=== PATIENT | male | born 1960 | race Caucasian/White ===

== ENCOUNTER 2018-03-26 12:37 | Outpatient (CLI) | payer BC ==
[2018-03-26 15:45] LABS: Bilirubin Negative (Negative); Blood, Urine Negative (Negative); Clarity CLEAR (Clear); Glucose, Urine (Dipstick) Negative (Negative); Leukocyte Negative (Negative); Nitrite Negative (Negative); Protein, Urine (Dipstick) 30 mg/dL (Neg-Trace); Specific Gravity, Urine 1.017 (1.002-1.036); Urobilinogen 0.2 mg/dL (0.2-1.0); pH, Urine 6.5 (5.0-9.0)
[2018-03-26 15:48] LABS: INR-International Normal Ratio 1.1; Prothrombin Time 13.9 SEC (12.0-14.7)
[2018-03-26 15:51] LABS: #Eosinphils 0.1 thou/uL (0.0-0.7); #Lymphocytes 1.4 thou/uL (1.20-3.40); #Monocytes 0.7 thou/uL (0.11-0.59); %Basophils 0.9 % (0.0-1.0); %Eosinophils 1.5 % (0.0-10.0); %Lymphocytes 27.4 % (21.0-51.0); %Monocytes 13.3 % (0.0-10.0); %Neutrophils 56.9 % (42.0-75.0); Hemoglobin 16.3 g/dL (14.0-18.0); Mean Corpuscular HGB CONC 35.2 g/dL (32.0-36.0); Mean Corpuscular Hemoglobin 34.7 pg (27.0-31.0); Mean Corpuscular Volume 98.7 fL (78.0-98.0); Mean Platelet Volume 7.3 fL (7.4-10.4); Platelet Count 190 thou/uL (130-400); RBC Distribution Width 11.4 % (11.5-14.5); Red Blood Cell (RBC) Count 4.69 mill/uL (4.70-6.10); White Blood Cell (WBC) Count 5.2 thou/uL (4.8-10.8)
[2018-03-26 15:53] LABS: Bacteria/HPF None Seen HPF (None Seen); Hyaline Casts/LPF 0-3 HYALINE CAST LPF (0-3 Hyaline); Pathc Cast-AUWi Flag 0.14 (0-2.49); RBC/HPF 0-3 HPF (0-3); Squamous Epithelial None Seen HPF (0-3); WBC/HPF 0-3 HPF (0-3)
== END 2018-03-26 12:38 | disposition home or self-care (01) ==
LOC: LABBT 12:37
PROVIDERS: ATTEND Orthopaedic Surgery
DX: Z01.818 Encounter for other preprocedural examination (principal); M17.12 Unilateral primary osteoarthritis, left knee
CPT/HCPCS: 81001; 85025; 85610; 86850; 86900; 86901; 87081; 93005; 93010

== ENCOUNTER 2018-03-26 15:00 | Inpatient (IN) | payer BC ==
[2018-03-26 13:07] VITALS: BMI 46.1
[2018-03-30] MEDS ORDERED: CEFAZOLIN/Water 2 GM/20 ML SYRINGE ONE (05:57)
[2018-03-30] MEDS ORDERED: Sodium Chloride 0.9% 100 ML ONE (05:57)
[2018-03-30] MEDS ORDERED: Midazolam HCl 2 mg/2 ml Vial ONE (06:19)
[2018-03-30] MEDS ORDERED: Fentanyl 100 MCG/2 ML VIAL ONE (06:19)
[2018-03-30] MEDS ORDERED: Bupivacaine PF 0.5% 30 ML VIAL ONE (06:51)
[2018-03-30] MEDS ORDERED: HYDROcodone/Acetaminophen 10/325 mg Tablet PO PRN (07:14)
[2018-03-30] MEDS ORDERED: Promethazine HCl 25 MG/ML VIAL IM PRN ×3 (07:14→07:55)
[2018-03-30] MEDS ORDERED: Ondansetron HCl/PF 4 MG/2 ML Vial IVP PRN ×3 (07:14→07:55)
[2018-03-30] MEDS ORDERED: Zolpidem Tartrate 5 MG TAB PO PRN ×2 (07:14→07:22)
[2018-03-30] MEDS ORDERED: Ketorolac Tromethamine 30 MG/ML VIAL IVP PRN (07:14)
[2018-03-30] MEDS ORDERED: Ropivacaine HCl/PF 250 ML in Premix Bag 1 BAG NERVE BLCK SCH (07:14)
[2018-03-30] MEDS ORDERED: Fentanyl 100 MCG/2 ML VIAL IV PRN (07:14)
[2018-03-30] MEDS ORDERED: traMADol HCl 50 MG TAB PO PRN ×2 (07:14→07:22)
[2018-03-30] MEDS ORDERED: Acetaminophen 325 MG TAB PO PRN (07:22)
[2018-03-30] MEDS ORDERED: Tranexamic Acid 1,000 MG in Sodium Chloride 0.9% 100 ML IVPB SCH (07:30)
[2018-03-30] MEDS ORDERED: TESTOSTERONE CYPIONATE 100 MG IM SCH (07:30)
[2018-03-30] MEDS ORDERED: Promethazine HCl 25 MG/ML VIAL SLOW IVP PRN (07:55)
[2018-03-30] MEDS ORDERED: Non-Formulary Item 1 EACH (Potassium Chloride [Potassium Chloride] 10 MEQ) PO SCH (09:00)
[2018-03-30] MEDS ORDERED: Fluticasone Propionate Nasal Spray 16 gm Bottle NASAL SCH (09:00)
[2018-03-30] MEDS ORDERED: cloNIDine 0.1 MG TAB PO SCH (09:00)
--- NOTE | 2018-03-30 09:38 | OP ---
DATE OF PROCEDURE: 03/30/2018 PREOPERATIVE DIAGNOSIS: Left knee osteoarthrosis. POSTOPERATIVE DIAGNOSIS: Left knee osteoarthrosis. PROCEDURE PERFORMED: Left total knee replacement using Solar Flow-Through pinless navigation. SURGEON: Apolinar Szymanski M.D. CHILD AND FAMILY THERAPIST: Vidal Jenkins PA-C. BLOOD LOSS: Minimal. COMPLICATIONS: None. ANESTHESIA: He did have general anesthetic. He also had preoperative blocks. IMPLANTS: To the left knee; [employer] total knee system, the femur was size 6 cruciate retai lidya femur. We used a size 6 universal tibial baseplate. We used a 6 x 9 CS X3 tibial bearing and a n asymmetric 29 x 9 X3 patella. DISPOSITION: He did go to the recovery room in stable condition. INDICATIONS: A 57-year-old male who has been having problems with his knee for over 2 years. He has had arthroscopic surgery, multiple injections, therapy, and medicines and at this time he wishes to have his knee replaced. PROCEDURE IN DETAIL: After all appropriate consent forms were explained and signed, the patient was t aken back to the Operating Room and at this time was given general anesthetic. Once the level of anes thesia was appropriate, a well-padded tourniquet was placed on the left leg and the leg was then prep ped and draped in standard surgical fashion. The limb was exsanguinated and tourniquet taken up to 30 0 mmHg. Midline incision was made with a 10 blade down through the skin and subcutaneous tissue. Bovi e electrocautery was used to coagulate any brisk venous bleeding. A new blade was used to make a medi al parapatellar arthrotomy. Small subperiosteal release was performed medially and excess fat pad was removed. The knee was flexed up to gain access to the femur. The femur was navigated and distal femo ral resection was made. Epicondylar access was used to align our sizing jig and this was pinned in pl marion. We sized our femur to be a size 6 cruciate retaining femur. 4:1 cutting block was applied and p inned. Anterior and posterior chamfer cuts were then made. We navigated out our proximal tibia and ma de our proximal tibial resection. Spreaders were used to remove any posterior osteophytes off the susan k of the femur as well as remaining meniscal tissue. A long alignment kathleen was then used to achieve co rrect rotation of our tibial baseplate and a size 6 universal tibial baseplate was chosen. This was p inned in place. We trialed the polyethylene and a 6 x 9 CS X3 tibial bearing polyethylene gave us ful l extension and good stability throughout range of motion. Two towel clips and a saw were used to cut our patella. Three lug nuts were drilled and an asymmetric 29 x 9 X3 patella was trialed which sat n icely in the trochlear groove. We then drilled our femur and punched our tibia. All components were r emoved. The knee was thoroughly irrigated and dried. Cement was mixed into the cement gun on the back table. Components were then placed. The knee was held out in full extension until the cement had dri ed. All excess bone cement was removed. Multiple #2 Vicryl stitches as well as a Quill was used to c lose our extensor mechanism. 0 Quill followed by a running Monoderm was then used to close the skin. Surgicel glue was then used on the skin. Once this had dried, soft tissue dressing was applied to the limb, tourniquet was let down, and the toes pinked up nicely. The patient was then awakened and reji en to the Recovery Room in stable condition. All counts were correct at the end of the case. The juno ent did receive preoperative IV antibiotics. The patient was injected with Exparel for postoperative pain relief.
[2018-03-30] MEDS ORDERED: PROPOFOL 200 MG/20 ML VIAL ONE (12:09)
[2018-03-30] MEDS ORDERED: Lidocaine 1% PF 5 ML VIAL ONE (12:09)
[2018-03-30] MEDS ORDERED: Ketorolac Tromethamine 30 MG/ML VIAL ONE (12:09)
[2018-03-30] MEDS ORDERED: Ondansetron HCl/PF 4 MG/2 ML Vial ONE (12:09)
[2018-03-30] MEDS: Aspirin 81 mg Enteric Coated Tablet PO SCH ×2 (13:29→21:14)
[2018-03-30] MEDS: Sodium Chloride 0.9% 1,000 ML IV SCH ×2 (13:29→21:24)
[2018-03-30] MEDS: cloNIDine 0.1 MG TAB PO SCH ×3 (13:30→21:13)
[2018-03-30] MEDS: Ferrous Gluconate 324 MG TAB PO SCH ×2 (13:30→21:14)
[2018-03-30] MEDS: Gabapentin 300 MG CAP PO SCH (13:30)
[2018-03-30] MEDS: Multivitamin W/ Minerals 1 TAB PO SCH (13:30)
[2018-03-30] MEDS: Fluticasone Propionate Nasal Spray 16 gm Bottle NASAL SCH (13:30)
[2018-03-30] MEDS: Furosemide 20 MG TAB PO SCH (13:30)
[2018-03-30] MEDS: Potassium Chloride 10 MEQ TAB PO SCH (13:31)
[2018-03-30] MEDS: Senokot S 8.6-50 MG TAB PO SCH ×2 (13:31→21:13)
[2018-03-30] MEDS ORDERED: Artificial Tears 18 DROP/0.9 ML EA EYE PRN (13:45)
[2018-03-30] MEDS ORDERED: Famotidine 20 MG TAB PO PRN (13:45)
[2018-03-30] MEDS ORDERED: Chloraseptic Spray 180 ml Bottle PO PRN (13:45)
[2018-03-30] MEDS ORDERED: Milk Of Magnesia 30 ML UDCUP PO PRN (13:45)
[2018-03-30] MEDS ORDERED: Senokot 8.6 MG TAB PO PRN (13:45)
[2018-03-30] MEDS ORDERED: Eucerin (Mineral Oil/Petrolatum,White) 30 gm Jar TOP PRN (13:45)
[2018-03-30] MEDS ORDERED: hydrALAZINE 20 MG/ML VIAL SLOW IVP PRN (13:45)
[2018-03-30] MEDS ORDERED: Mag-Al 1200 mg/1200 mg/30 ML UDCUP PO PRN (13:45)
[2018-03-30] MEDS ORDERED: Diabetic Tussin 200 MG/10 ML UDCUP PO PRN (13:45)
[2018-03-30] MEDS ORDERED: Bisacodyl 10 MG SUPP PR PRN (13:45)
[2018-03-30] MEDS ORDERED: Loperamide HCl 2 MG CAP PO PRN (13:45)
--- NOTE | 2018-03-30 13:46 | PDOC.PN ---
- Subjective Encounter Start Date: 03/30/18 Encounter Start Time: 14:24 -: old records requested/rev consulted for medical management pt had left knee replacement he has nerve block pain is controlled old record reviewed Patient seen and examined. No new complaints. - Objective MAR Reviewed: Yes Vital Signs & Weight: Vital Signs (12 hours) Temp Pulse Resp BP Pulse Ox 03/30/18 13:27 98.0 F 66 18 162/80 H 96 03/30/18 10:40 98.1 F 63 18 161/83 H 96 Weight Weight 350 lb I&O: 03/29/18 03/30/18 03/31/18 06:59 06:59 06:59 Output Total 600 Balance -600 Phys Exam - Physical Examination Constitutional: NAD HEENT: PERRLA, moist MMs, sclera anicteric Neck: no JVD, supple Respiratory: no wheezing, no rales, no rhonchi Cardiovascular: RRR, no significant murmur, no rub Gastrointestinal: soft, non-tender, no distention, positive bowel sounds obesity+ Musculoskeletal: no edema, pulses present left leg with dressing, nerve block + Neurological: non-focal, normal sensation, moves all 4 limbs Lymphatic: no nodes Psychiatric: normal affect, A&O x 3 Skin: no rash, normal turgor Dx/Plan (1) Status post total left knee replacement Code(s): Z96.652 - PRESENCE OF LEFT ARTIFICIAL KNEE JOINT Status: Acute (2) Hypertension Code(s): I10 - ESSENTIAL (PRIMARY) HYPERTENSION Status: Chronic (3) Morbid obesity with BMI of 45.0-49.9, adult Code(s): E66.01 - MORBID (SEVERE) OBESITY DUE TO EXCESS CALORIES; Z68.42 - BODY MASS INDEX (BMI) 45.0-49.9, ADULT Status: Chronic (4) Osteoarthritis Code(s): M19.90 - UNSPECIFIED OSTEOARTHRITIS, UNSPECIFIED SITE Status: Chronic - Plan cont current plan of care * continue aspirin for DVT prophylaxis * continue pepcid for GI prophylaxis * code status - full code * continue PT/OT as per [facility] protocol treatment * pain control with pain meds as below * nerve block as per anesthesia * medication reviewed as below * symptomatic treatment * medically stable with current treatment. Review of Systems - Review of Systems Eyes: negative: Pain, Vision Change, Conjunctivae Inflammation, Eyelid Inflammation, Redness, Other ENT: negative: Ear Pain, Ear Discharge, Nose Pain, Nose Discharge, Nose Congestion, Mouth Pain, Mouth Swelling, Throat Pain, Throat Swelling, Other Respiratory: negative: Cough, Dry, Shortness of Breath, Hemoptysis, SOB with Excertion, Pleuritic Pain, Sputum, Wheezing Cardiovascular: negative: chest pain, palpitations, orthopnea, paroxysmal nocturnal dyspnea, edema, light headedness, other Gastrointestinal: negative: Nausea, Vomiting, Abdominal Pain, Diarrhea, Constipation, Melena, Hematochezia, Other Genitourinary: negative: Dysuria, Frequency, Incontinence, Hematuria, Retention , Other Musculoskeletal: negative: Neck Pain, Shoulder Pain, Arm Pain, Back Pain, Hand Pain, Leg Pain, Foot Pain, Other Skin: negative: Rash, Lesions, Remi, Bruising, Other - Medications/Allergies Allergies/Adverse Reactions: Allergies Allergy/AdvReac Type Severity Reaction Status Date / Time escitalopram [From Lexapro] Allergy blotches Verified 03/26/18 13:08 hydrocodone Allergy blotches Verified 03/26/18 13:08 and itching detergents Allergy itching Uncoded 03/26/18 13:08 and skin peeling Medications: Current Medications Acetaminophen (Tylenol) 650 mg PO Q4H PRN PRN Reason: CANAS/ T > 101F; Mild Pain (1-3) Hydrocodone Bitart/Acetaminophen (Van 10/325) 1 tab PO Q4H PRN PRN Reason: Pain (1-3) Hydrocodone Bitart/Acetaminophen (Van 10/325) 2 tab PO Q4H PRN PRN Reason: PAIN (4-6) Al Hydroxide/Mg Hydroxide (Maalox) 15 ml PO Q4H PRN PRN Reason: Heartburn or Indigestion Amlodipine Besylate (Norvasc) 10 mg PO HS [facility] Artificial Tears (Tears Naturale) 0 drop EA EYE PRN PRN PRN Reason: Dry Eyes Aspirin (Ecotrin) 81 mg PO BID [facility] Last Admin: 03/30/18 13:29 Dose: Not Given Bisacodyl (Dulcolax) 10 mg MS DAILYPRN PRN PRN Reason: Constipation Cefazolin Sodium (Ancef) 2 gm SLOW IVP Q8H [facility] Stop: 03/30/18 22:01 Clonidine (Catapres) 0.1 mg PO TID [facility] Last Admin: 03/30/18 13:30 Dose: Not Given Diphenhydramine HCl (Benadryl) 25 mg PO Q6H PRN PRN Reason: Itching Famotidine (Pepcid) 20 mg PO BIDPRN PRN PRN Reason: Heartburn or Indigestion Fentanyl (Sublimaze) 50 mcg IV Q1H PRN PRN Reason: BREAKTHROUGH PAIN Ferrous Gluconate (Fergon) 324 mg PO BID [facility] Last Admin: 03/30/18 13:30 Dose: Not Given Fluticasone Propionate (Flonase Nasal Fertile) 0 gm NASAL DAILY [facility] Last Admin: 03/30/18 13:30 Dose: Not Given Furosemide (Lasix) 20 mg PO DAILY [facility] Last Admin: 03/30/18 13:30 Dose: Not Given Gabapentin (Neurontin) 300 mg PO DAILY [facility] Last Admin: 03/30/18 13:30 Dose: Not Given Guaifenesin (Organ-I Nr) 400 mg PO [facility] Guaifenesin (Robitussin Sf) 200 mg PO Q4H PRN PRN Reason: Cough Hydralazine HCl (Apresoline) 10 mg SLOW IVP Q4H PRN PRN Reason: Systolic BP > 180 Ropivacaine 250 ml/ Device 250 mls @ 0 mls/hr NERVE BLCK INF [facility] Sodium Chloride (Normal Saline 0.9%) 1,000 mls @ 100 mls/hr IV .Q10H [facility] Last Admin: 03/30/18 13:29 Dose: Not Given Tranexamic Acid 1,000 mg/ (Sodium Chloride) 110 mls @ 200 mls/hr IVPB ONE [facility] Stop: 03/30/18 21:00 Iron/Minerals/Multivitamins (Theragran M) 1 tab PO DAILY [facility] Last Admin: 03/30/18 13:30 Dose: Not Given Ketorolac Tromethamine (Toradol) 30 mg IVP Q6H PRN PRN Reason: Moderate Pain (4-6) Stop: 04/02/18 07:15 Loperamide HCl (Imodium) 2 mg PO PRN PRN PRN Reason: Diarrhea/Loose Stools Loratadine (Claritin) 10 mg PO [facility] Magnesium Hydroxide (Milk Of Magnesium) 30 ml PO DAILYPRN PRN PRN Reason: Constipation Metoprolol Succinate (Toprol Xl) 100 mg PO HS [facility] Mineral Oil/White Petrolatum (Eucerin Cream) 0 gm TOP BIDPRN PRN PRN Reason: Dry Skin Ondansetron HCl (Zofran) 4 mg IVP Q6H PRN PRN Reason: Nausea/Vomiting Phenol (Chloraseptic Fertile 180 Ml Bot) 0 ml PO PRN PRN PRN Reason: Sore Throat Potassium Chloride (Klor-Con 10) 10 meq PO DAILY [facility] Last Admin: 03/30/18 13:31 Dose: Not Given Promethazine HCl (Phenergan) 12.5 mg IM Q4H PRN PRN Reason: Nausea Senna (Senokot) 2 tab PO HSPRN PRN PRN Reason: Constipation Senna/Docusate Sodium (Senokot S) 2 tab PO BID [facility] Last Admin: 03/30/18 13:31 Dose: Not Given Sodium Chloride (Flush - Normal Saline) 10 ml IVF PRN PRN PRN Reason: Saline Flush Testosterone Cypionate ([facility]o-Test[facility]) [facility] Tramadol HCl (Ultram) 50 mg PO Q6H PRN PRN Reason: Mild Pain (1-3) Tramadol HCl (Ultram) 100 mg PO Q6H PRN PRN Reason: Moderate Pain 4-6 Zolpidem Tartrate (Ambien) 5 mg PO HSPRN PRN PRN Reason: Insomnia
[2018-03-30] MEDS: CEFAZOLIN/Water 2 GM/20 ML SYRINGE SLOW IVP SCH ×2 (16:25→21:15)
[2018-03-30] MEDS ORDERED: GUAIFENESIN 400 MG PO SCH (21:00)
[2018-03-30] MEDS ORDERED: Non-Formulary Item 1 EACH (Cetirizine Hcl [Allergy Relief] 10 MG) PO SCH (21:00)
[2018-03-30] MEDS: traMADol HCl 50 MG TAB PO PRN (21:12)
[2018-03-30] MEDS: Amlodipine 10 MG TAB PO SCH (21:13)
[2018-03-30] MEDS: Loratadine 10 MG TAB PO SCH (21:14)
[2018-03-31] MEDS: guaiFENesin 200 MG TAB PO SCH ×2 (01:25→21:03)
[2018-03-31] MEDS: diphenhydrAMINE 25 MG CAP PO PRN (01:39)
[2018-03-31 05:34] LABS: Hemoglobin 13.3 g/dL (14.0-18.0); Mean Corpuscular HGB CONC 36.1 g/dL (32.0-36.0); Mean Corpuscular Hemoglobin 35.4 pg (27.0-31.0); Platelet Count 135 thou/uL (130-400); RBC Distribution Width 11.1 % (11.5-14.5); Red Blood Cell (RBC) Count 3.76 mill/uL (4.70-6.10); White Blood Cell (WBC) Count 7.5 thou/uL (4.8-10.8)
[2018-03-31] MEDS: Sodium Chloride 0.9% 1,000 ML IV SCH ×2 (05:39→07:52)
[2018-03-31] MEDS: cloNIDine 0.1 MG TAB PO SCH ×3 (08:01→21:03)
[2018-03-31] MEDS: Senokot S 8.6-50 MG TAB PO SCH ×3 (08:01→21:04)
[2018-03-31] MEDS: Aspirin 81 mg Enteric Coated Tablet PO SCH ×2 (08:01→21:04)
[2018-03-31] MEDS: Gabapentin 300 MG CAP PO SCH (08:01)
[2018-03-31] MEDS: Multivitamin W/ Minerals 1 TAB PO SCH (08:01)
[2018-03-31] MEDS: Furosemide 20 MG TAB PO SCH (08:02)
[2018-03-31] MEDS: Potassium Chloride 10 MEQ TAB PO SCH (08:02)
[2018-03-31] MEDS: Ferrous Gluconate 324 MG TAB PO SCH ×2 (08:02→21:04)
[2018-03-31] MEDS: HYDROcodone/Acetaminophen 10/325 mg Tablet PO PRN ×3 (08:03→18:04)
--- NOTE | 2018-03-31 10:37 | PRG ---
DATE OF SERVICE: 03/31/2018 PRIMARY CARE PHYSICIAN: Dr. Ashley Hills. DATE OF ADMISSION: 03/30/2018 DATE OF DISCHARGE: 03/31/2018 DISCHARGE DISPOSITION: Home. PRIMARY DISCHARGE DIAGNOSIS: Status post left total knee replacement. SECONDARY DISCHARGE DIAGNOSES: Hypertension, osteoarthritis, morbid obesity with BMI 46. PRIMARY PROCEDURES AND OPERATIONS: Left total knee replacement. RADIOLOGICAL INVESTIGATION: None. SIGNIFICANT LABORATORY DATA: WBC 7.5, hemoglobin 13.3, platelets 135. DISCHARGE MEDICATIONS: Amlodipine 10 mg p.o. at bedtime, aspirin 81 mg p.o. b.i.d. for DVT prophylax is, cetirizine 10 mg p.o. at bedtime, clonidine 0.1 mg p.o. t.i.d., flaxseed 1 capsule p.o. b.i.d., F lonase nasal spray daily, Lasix 20 mg daily, gabapentin 300 mg p.o. daily, Bidex 400 mg p.o. at bedti me, losartan 100 mg p.o. in evening, Toprol-XL 100 mg p.o. at bedtime, multivitamin 1 tablet p.o. harlan ly, fish oil 1 capsule p.o. daily and bedtime, potassium chloride 10 mEq p.o. daily, testosterone 100 mg IM every 2 weeks, vitamin B complex 1 capsule p.o. daily. CONTRAINDICATIONS: None. CODE STATUS: FULL CODE. INPATIENT CONSULTANTS: Dr. Szymanski was primary while in hospital. Sound Team was consulted for medical comanagement. TEST RESULTS PENDING ON DISCHARGE: None. ALLERGIES: LEXAPRO, HYDROCODONE. DISCHARGE PLAN: Post hospital, the patient will follow up with Dr. Szymanski on 04/07/2018 at 2:30 p.m. The patient will make appointment with primary care physician in 1 week. HOSPITAL COURSE: A 57-year-old male with the above mentioned medical problem who was electively admi tted by Dr. Apolinar Szymanski for left total knee replacement which was done on 03/30/2018 without any comp lications. Postoperatively, a [facility] [place] team was consulted for medical comanagement. W sabine in hospital, patient's pain was controlled with no block and pain medication. The patient was d oing very well per [facility] protocol. The patient is planned for discharge later on today. The patient is seen and examined at bedside today. All review of system reviewed with him and negati ve. VITAL SIGNS: He had low grade temperature earlier today, but patient was clinically doing very well. His current temperature is 99.1, pulse 78, respiratory rate 18, saturation 92% on room air, blood p ressure 162/75, weight 350 pounds. GENERAL: The patient is currently alert, awake, no obvious acute distress. HEAD: Normocephalic, atraumatic. EYES: Pupils are round, reactive to light. Extraocular muscles are intact. ENT: Oropharynx within normal limits. Moist mucous membranes. No oral lesion, no pharyngeal erythe ma, no exudate. NECK: Supple, no JVD, no thyromegaly, no carotid bruit. LUNGS: Clear to auscultation without any rhonchi or rales. CARDIAC: S1, S2 regular without any murmur. ABDOMEN: Soft and benign without any tenderness. EXTREMITIES: No edema. NEUROLOGIC: Nonfocal examination. His surgical site on the left knee is clean and healthy. We will sign off.
[2018-03-31] MEDS: Fluticasone Propionate Nasal Spray 16 gm Bottle NASAL SCH (16:30)
[2018-03-31] MEDS: Loratadine 10 MG TAB PO SCH (21:04)
[2018-03-31] MEDS: Amlodipine 10 MG TAB PO SCH (21:04)
[2018-03-31] MEDS: traMADol HCl 50 MG TAB PO PRN (21:10)
[2018-04-01] MEDS: diphenhydrAMINE 25 MG CAP PO PRN (00:34)
[2018-04-01] MEDS: Sodium Chloride 0.9% 1,000 ML IV SCH (00:38)
[2018-04-01 06:18] LABS: Hemoglobin 12.5 g/dL (14.0-18.0); Mean Corpuscular HGB CONC 36.1 g/dL (32.0-36.0); Mean Corpuscular Hemoglobin 35.5 pg (27.0-31.0); Mean Corpuscular Volume 98.5 fL (78.0-98.0); Mean Platelet Volume 7.3 fL (7.4-10.4); Platelet Count 128 thou/uL (130-400); RBC Distribution Width 11.1 % (11.5-14.5); Red Blood Cell (RBC) Count 3.53 mill/uL (4.70-6.10); White Blood Cell (WBC) Count 7.9 thou/uL (4.8-10.8)
[2018-04-01 06:46] LABS: ALT (SGPT) 55 U/L (8-55); AST (SGOT) 31 U/L (5-34); Albumin 3.7 g/dL (3.5-5.0); Alkaline Phosphatase 40 U/L (40-150); Bilirubin, Direct 0.7 mg/dL (0.1-0.3); Bilirubin, Total 1.8 mg/dL (0.2-1.2); Protein, Total 6.2 g/dL (6.0-8.3)
[2018-04-01] MEDS: Senokot S 8.6-50 MG TAB PO SCH (08:02)
[2018-04-01] MEDS: cloNIDine 0.1 MG TAB PO SCH (08:02)
[2018-04-01] MEDS: Furosemide 20 MG TAB PO SCH (08:03)
[2018-04-01] MEDS: Multivitamin W/ Minerals 1 TAB PO SCH (08:03)
[2018-04-01] MEDS: Potassium Chloride 10 MEQ TAB PO SCH (08:03)
[2018-04-01] MEDS: Aspirin 81 mg Enteric Coated Tablet PO SCH (08:03)
[2018-04-01] MEDS: Ferrous Gluconate 324 MG TAB PO SCH (08:03)
[2018-04-01] MEDS: Gabapentin 300 MG CAP PO SCH (08:03)
[2018-04-01] MEDS: HYDROcodone/Acetaminophen 10/325 mg Tablet PO PRN ×2 (08:05→14:36)
[2018-04-01] MEDS: Fluticasone Propionate Nasal Spray 16 gm Bottle NASAL SCH (08:10)
[2018-04-01 11:58] VITALS: BP 152/81; TEMP 98.4
== END 2018-04-01 15:25 | disposition home or self-care (01) | DRG 470 ==
LOC: SJJU 03-30 05:40
PROVIDERS: ADMIT Orthopaedic Surgery; ATTEND Orthopaedic Surgery
PROC: 0SRD0J9 Replacement of Left Knee Joint with Synthetic Substitute, Cemented, Open Approach (ICD-10-PCS; principal; 2018-03-30)
DX: M17.12 Unilateral primary osteoarthritis, left knee (principal); Z68.42 Body mass index [BMI] 45.0-49.9, adult; I10 Essential (primary) hypertension; E66.01 Morbid (severe) obesity due to excess calories; Z88.5 Allergy status to narcotic agent; Z88.8 Allergy status to other drugs, medicaments and biological substances; Z79.82 Long term (current) use of aspirin; Z79.899 Other long term (current) drug therapy
CPT/HCPCS: 36415; 80076; 85027; C1713; C1776; G8978-GP-CL; G8979-GP-CJ; J1885; J2001; J2250; J2405; J2704; J2795; J3010; J3370; J7050; S0020

== ENCOUNTER 2018-06-25 11:07 | Outpatient (CLI) | payer BC ==
--- NOTE | 2018-06-25 15:00 | CT ---
NONCONTRAST CT LUMBAR SPINE: DATE: 06/25/2018. HISTORY: Low back pain with a history of a fall 1 year ago. FINDINGS: Vascular calcifications are seen in the abdominal aorta and involving the iliac arteries. There is m ild increase in number of left periaortic lymph nodes with mild prominence of a left periaortic lymph node in the short axis dimension measuring 1.3 cm. No fracture or subluxation is seen involving the lumbar spine. Degenerative changes are seen in the lumbar spine. There are 4 [id number] lumbar-type vertebral bodies. The lumbar vertebral bodies will be number ed L1 through L4 with lumbosacral junction labeled L4-S1, although the disk segment may represent sac ralization of an L5 vertebral body. Please refer to numbering on images. 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 T12-L1 level: There is no significant disk bulge or disk herniation. The central spinal canal and n eural foramen are patent. L1-2 level: There is no disk bulge or disk herniation. Central spinal canal and neural foramen are patent. L2-3 level: There is mild disk-osteophyte complex with mild facet hypertrophic changes. In combinat ion with congenitally short pedicles, findings result in moderate to severe narrowing of central spin al canal with mild to moderate bilateral neural foraminal narrowing present. L3-4 level: There is mild loss of intervertebral disk height with mild end plate degenerative change s present. There is a prominent osteophyte seen anteriorly. There is a broad-based disk-osteophyte complex present with facet hypertrophic changes. There is resultant moderate to severe narrowing of the disk with moderate bilateral neural foraminal narrowing. L4-5 level: There is mild disk-osteophyte complex without significant narrowing of the central spina l canal. There is encroachment on the traversing bilateral S1 nerve roots. There is mild bilateral neural foraminal narrowing present. Facet degenerative changes are noted. There is a subcentimeter sclerotic density seen within the right sacral ala, probably related to a [place]. IMPRESSION: As noted above, the last rib-bearing vertebral body will be numbered T12 resulting in 4 [id number] ng lumbar-type vertebral bodies as described. There are multilevel degenerative changes with general ized narrowing of the central spinal canal secondary to congenitally short pedicles. Greater degrees of central canal narrowing are seen at the L2-3 and L3-4 levels due to associated broad-based disk-o steophyte complexes and facet hypertrophic changes with at least moderate narrowing of the central sp inal canal at these levels as well as moderate bilateral neural foraminal narrowing. POS: BETO
== END 2018-06-25 11:08 | disposition home or self-care (01) ==
LOC: TBSIIMAG 11:07
PROVIDERS: ATTEND Neurological Surgery
DX: M54.5 Low back pain (principal); M47.816 Spondylosis without myelopathy or radiculopathy, lumbar region; M48.061 Spinal stenosis, lumbar region without neurogenic claudication; M99.83 Other biomechanical lesions of lumbar region
CPT/HCPCS: 72131